=== PATIENT | female | born 1985 | race Native Hawaiian/Other Pacific Islander ===

== ENCOUNTER 2017-02-08 07:32 | Emergency (ER) | payer MEDICAID ==
[2017-02-08 07:42] VITALS: O2SAT 100
[2017-02-08] MEDS ORDERED: Sodium Chloride 0.9% 1,000 ML IV ONE ×2 (08:18→11:08)
[2017-02-08 08:23] LABS: RBC URINE < 1 /hpf (0-3); URINE BACTERIA RARE (<OCC); URINE BILIRUBIN NEGATIVE (NEGATIVE); URINE BLOOD NEGATIVE (NEGATIVE); URINE COLOR Straw (YELLOW); URINE GLUCOSE (UA) NORMAL (Normal); URINE KETONE NEGATIVE (NEGATIVE); URINE LEUKOCYTE ESTERASE NEG Leu/uL (Negative); URINE PROTEIN NEGATIVE (NEGATIVE); URINE UROBILINOGEN NORMAL mg/dL (0.2-1.0); WBC URINE 1 /hpf (0-5)
[2017-02-08] MEDS ORDERED: Sodium Chloride 0.9% 1,000 ML ONE (08:30)
[2017-02-08 09:03] LABS: BASO % 0.5 % (0.0-2.0); EOS % 1.1 % (0.0-4.0); HEMATOCRIT 35.4 % (34.0-47.0); LYMPH # 1.9 K/uL (1.0-4.3); MEAN CELL VOLUME 88.7 fL (81.0-99.0); MEAN CORPUSCULAR HEMOGLOBIN 29.9 pg (27.0-31.0); MEAN CORPUSCULAR HGB CONC 33.7 g/dL (33.0-37.0); MEAN PLATELET VOLUME 8.1 fL (7.2-11.7); MONO # 0.5 K/uL (0.0-0.8); MONO % 10.1 % (0.0-10.0); RED CELL DISTRIBUTION WIDTH 13.4 % (11.5-14.5); WHITE BLOOD COUNT 4.6 K/uL (4.8-10.8)
[2017-02-08 09:12] LABS: CHLORIDE 106 mmol/L (98-107); SODIUM 139 mmol/L (132-148)
[2017-02-08 09:14] LABS: ALB/GLOB RATIO 1.2 (1.0-2.1); ALKALINE PHOSPHATASE 49 U/L (38-126); ALT/SGPT 33 U/L (9-52); AST/SGOT 22 U/L (14-36); BILIRUBIN,TOTAL 0.4 mg/dL (0.2-1.3); BLOOD UREA NITROGEN 8 mg/dL (7-17); CARBON DIOXIDE 25 mmol/L (22-30); GFR AFRICAN-AMERICAN > 60; GLUCOSE,RANDOM 87 mg/dL (65-105); TOTAL PROTEIN 7.4 g/dL (6.3-8.3)
[2017-02-08 09:15] LABS: CALCIUM 8.8 mg/dl (8.6-10.4)
--- NOTE | 2017-02-08 09:31 | C.PDOC ---
History Of Present Illness 31 y/o female, with no significant PMHx, presents to ED for evaluation of LLQ abdominal pain since yesterday. Pt reports associated nausea, and dysuria. Notes that she had diarrhea yesterday. Otherwise, denies any vomiting, back pain , hematuria, urinary frequency, fever, chills, or any other associated symptoms at this time. Time Seen by Provider: 02/08/17 07:59 Chief Complaint (Nursing): Abdominal Pain History Per: Patient History/Exam Limitations: no limitations Onset/Duration Of Symptoms: Days (1) Current Symptoms Are (Timing): Still Present Location Of Pain/Discomfort: LLQ Radiation Of Pain To:: None Quality Of Discomfort: "Pain" Associated Symptoms: Nausea, Diarrhea, Urinary Symptoms (dysuria). denies: Vomiting, Loss Of Appetite, Back Pain, Chest Pain, Constipation Exacerbating Factors: None Alleviating Factors: None Recent travel outside of the [place]: No Additional History Per: Patient Abnormal Vaginal Bleeding: No Past Medical History Reviewed: Historical Data, Nursing Documentation, Vital Signs Vital Signs: Last Vital Signs Temp 98.4 F 02/08/17 12:15 Pulse 72 02/08/17 12:15 Resp 18 02/08/17 12:15 BP 112/72 02/08/17 12:15 Pulse Ox 100 02/08/17 12:15 Surgical History: Back Surgery Family History: States: No Known Family Hx - Social History Hx Alcohol Use: No Hx Substance Use: No - Immunization History Hx Tetanus Toxoid Vaccination: No Hx Influenza Vaccination: Yes Hx Pneumococcal Vaccination: No Review Of Systems Except As Marked, All Systems Reviewed And Found Negative. Constitutional: Negative for: Fever, Chills Cardiovascular: Negative for: Chest Pain, Palpitations, Light Headedness Respiratory: Negative for: Cough, Shortness of Breath Gastrointestinal: Positive for: Nausea, Abdominal Pain, Diarrhea. Negative for : Vomiting Genitourinary: Positive for: Dysuria. Negative for: Frequency, Incontinence, Hematuria, Vaginal Discharge, Vaginal Bleeding Musculoskeletal: Negative for: Neck Pain, Back Pain Skin: Negative for: Rash, Bruising Neurological: Positive for: Headache. Negative for: Dizziness Physical Exam - Physical Exam Appears: Non-toxic, No Acute Distress Skin: Normal Color, Warm, Dry, No Rash Head: Atraumatic, Normacephalic Eye(s): bilateral: Normal Inspection, EOMI Nose: Normal Oral Mucosa: Moist Neck: Normal ROM, Supple Chest: Symmetrical Cardiovascular: Rhythm Regular, No Murmur Respiratory: Normal Breath Sounds, No Rales, No Rhonchi, No Wheezing Gastrointestinal/Abdominal: Soft, Tenderness (LLQ), No Distention, No Guarding, No Rebound Back: CVA Tenderness (left), No Vertebral Tenderness, No Paraspinal Tenderness Extremity: Normal ROM, No Pedal Edema Neurological/Psych: Oriented x3, Normal Speech ED Course And Treatment - Laboratory Results Result Diagrams: 02/08/17 08:57 02/08/17 08:57 O2 Sat by Pulse Oximetry: 100 (on RA) Pulse Ox Interpretation: Normal - CT Scan/US Abd & Pelvis CT Other Rad Studies (CT/US): Read By Radiologist, Radiology Report Reviewed CT/US Interpretation: PROCEDURE: CT Abdomen and Pelvis without Oral or IV contrast. HISTORY: left flank pain. COMPARISON: None available. TECHNIQUE: Contiguous axial images of the abdomen and pelvis. No oral or IV contrast administered. Coronal and Sagittal reformats generated and reviewed. Radiation dose: Total exam DLP = 891.35 mGy-cm. This CT exam was performed using one or more of the following dose reduction techniques: Automated exposure control, adjustment of the mA and/or kV according to patient size, and/or use of iterative reconstruction technique. FINDINGS: There is limited evaluation of the solid organs without the administration of IV contrast. Examination also limited by patient motion/streak artifact. LOWER THORAX: No visible consolidation, pleural effusion, or pneumothorax. Small to moderate-sized hiatal hernia. LIVER: Unremarkable unenhanced appearance. GALLBLADDER AND BILE DUCTS: Unremarkable unenhanced appearance. PANCREAS: Unremarkable unenhanced appearance. SPLEEN: Unremarkable unenhanced appearance. ADRENALS: Unremarkable unenhanced appearance. KIDNEYS AND URETERS: No hydronephrosis or obstructing renal calculus. Nonobstructing bilateral renal calculi measuring approximately 6 mm on the right and 2 on the left measuring less than 2 mm. BLADDER: Mildly thick-walled urinary bladder may be exaggerated by under distension. REPRODUCTIVE: Uterus is present. APPENDIX: The appendix appears within normal limits of caliber. No secondary signs of acute appendicitis. BOWEL: The stomach is nondistended. Lack of oral contrast limits evaluation for bowel pathology. The bowel loops appear within normal limits of caliber without evidence of intestinal obstruction. Mild constipation. PERITONEUM: No significant free fluid. No definite free air. LYMPH NODES: No bulky lymphadenopathy identified. VASCULATURE: No aortic aneurysm. BONES: No acute osseous abnormality is detected. OTHER FINDINGS: None. IMPRESSION: No hydronephrosis or obstructing renal calculus. Nonobstructing bilateral renal calculi measuring approximately 6 mm on the right and 2 on the left measuring less than 2 mm. Mildly thick-walled urinary bladder may be exaggerated by under distension. Recommend correlation with urinalysis. Small to moderate hiatal hernia. Medical Decision Making Medical Decision Making: Blood work, UA, Abd & Pelvis CT ordered and reviewed. Pt was given Pepcid, Toradol, Zofran, and IV fluids. On re-eval, pt reports feeling better. Patient to be discharged, Disposition Counseled Patient/Family Regarding: Studies Performed, Diagnosis, Rx Given - Disposition Disposition: HOME/ ROUTINE Disposition Time: 12:53 Condition: STABLE Forms: [facility] (Belgian) - Clinical Impression Clinical Impression: Abdominal pain, Renal calculus, bilateral - Scribe Statement The provider has reviewed the documentation as recorded by the Parish Slater All medical record entries made by the Parish were at my direction and personally dictated by me. I have reviewed the chart and agree that the record accurately reflects my personal performance of the history, physical exam, medical decision making, and the department course for this patient. I have also personally directed, reviewed, and agree with the discharge instructions and disposition.
--- NOTE | 2017-02-08 10:34 | CT ---
PROCEDURE: CT Abdomen and Pelvis without Oral or IV contrast. HISTORY: left flank pain COMPARISON: None available. TECHNIQUE: Contiguous axial images of the abdomen and pelvis. No oral or IV contrast administered. Coronal and Sagittal reformats generated and reviewed. Radiation dose: Total exam DLP = 891.35 mGy-cm. This CT exam was performed using one or more of the following dose reduction techniques: Automated exposure control, adjustment of the mA and/or kV according to patient size, and/or use of iterative reconstruction technique. FINDINGS: There is limited evaluation of the solid organs without the administration of IV contrast. Examination also limited by patient motion/streak artifact. LOWER THORAX: No visible consolidation, pleural effusion, or pneumothorax. Small to moderate-sized hiatal hernia. LIVER: Unremarkable unenhanced appearance. GALLBLADDER AND BILE DUCTS: Unremarkable unenhanced appearance. PANCREAS: Unremarkable unenhanced appearance. SPLEEN: Unremarkable unenhanced appearance. ADRENALS: Unremarkable unenhanced appearance. KIDNEYS AND URETERS: No hydronephrosis or obstructing renal calculus. Nonobstructing bilateral renal calculi measuring approximately 6 mm on the right and 2 on the left measuring less than 2 mm. BLADDER: Mildly thick-walled urinary bladder may be exaggerated by under distension. REPRODUCTIVE: Uterus is present. APPENDIX: The appendix appears within normal limits of caliber. No secondary signs of acute appendicitis. BOWEL: The stomach is nondistended. Lack of oral contrast limits evaluation for bowel pathology. The bowel loops appear within normal limits of caliber without evidence of intestinal obstruction. Mild constipation. PERITONEUM: No significant free fluid. No definite free air. LYMPH NODES: No bulky lymphadenopathy identified. VASCULATURE: No aortic aneurysm. BONES: No acute osseous abnormality is detected. OTHER FINDINGS: None. IMPRESSION: No hydronephrosis or obstructing renal calculus. Nonobstructing bilateral renal calculi measuring approximately 6 mm on the right and 2 on the left measuring less than 2 mm. Mildly thick-walled urinary bladder may be exaggerated by under distension. Recommend correlation with urinalysis. Small to moderate hiatal hernia.
[2017-02-08] MEDS ORDERED: Lidocaine 95 MG in Sodium Chloride 0.9% 100 ML IV STA ×2 (11:09→11:14)
[2017-02-08 12:38] VITALS: BP 112/72; PULSE 72; RESP 18; TEMP 98.4
== END 2017-02-08 12:15 | disposition home or self-care (01) ==
LOC: C.ER 07:32
DX: N20.0 Calculus of kidney (principal)
CPT/HCPCS: 74176; 80053; 81001; 84703; 85025; 96361; 96374; 96375; 99285; J1885; J2001; J2405; J7040